=== PATIENT | male | born 1985 | race Caucasian/White ===

== ENCOUNTER 2019-12-26 13:52 | Emergency (ER) | payer OTHER, SELFPAY ==
[2019-12-26 14:09] VITALS: BP 144/96; PULSE 130; RESP 18; TEMP 38.6; O2SAT 97
--- NOTE | 2019-12-26 14:34 | WPDEDEXPGENP ---
HPI - General Ped General Chief complaint: Fever Stated complaint: sob/fever/cough Time Seen by Provider: 12/26/19 14:34 Source: patient and RN notes reviewed Mode of arrival: ambulatory Limitations: no limitations Nursing Documentation: reviewed/agree History of Present Illness HPI narrative: This is a 34 years old male presented office for evaluation of not feeling well since this morning. Symptoms include stuffy nose, runny nose, achy, sweating and chill. No treatment prior to arrival. He did not even know that he had a fever. He did not take influenza vaccine for the season. Related Data Home Medications Medication Instructions Recorded Confirmed atenolol 12.5 mg PO BID 12/26/19 12/26/19 bupropion HCl [Wellbutrin XL] 300 mg PO QAM 12/26/19 12/26/19 clonazepam 0.5 mg PO DAILY 12/26/19 12/26/19 dextroamphetamine-amphetamine 20 mg PO DAILY 12/26/19 12/26/19 [Adderall] eszopiclone [Lunesta] 2 mg PO HS 12/26/19 12/26/19 lamotrigine [Lamictal] 200 mg PO BID 12/26/19 12/26/19 Allergies Allergy/AdvReac Type Severity Reaction Status Date / Time No Known Allergies Allergy Unverified 12/26/19 14:42 Pediatric Review of Systems : Review of Systems: CONSTITUTIONAL: Reports chills, sweats. ENT:Reports a little stuffy nose. Denies sore throat/ears pain CARDIOVASCULAR: Denies chest pain, palpitations; admits to history of tachycardia RESPIRATORY: Denies dyspnea, wheezing. Reports a little cough GASTROINTESTINAL: Denies abdominal pain, vomiting, diarrhea. +nausea GENITOURINARY: Denies urinary symptoms or discharge SKIN: Denies rash MUSCULOSKELETAL: Denies acute back pain, joint pain, or myalgia. NEUROLOGIC: Denies numbness, or focal weakness. [facility] Past Medical History Medical History (Updated 12/26/19 @ 14:58 by SIGRID Koehler) Anxiety History of tachycardia Inguinal hernia Surgical History Surgical History (Updated 12/26/19 @ 14:58 by SIGRID Koehler) Hx of appendectomy Comments At time of signature, I agree with nursing past medical, surgical, social and family history. There is no relevant family history pertinent to the presenting complaint. Pediatric Exam Narrative: Physical exam: GENERAL: This is a well-nourished, well-developed patient, in no apparent distress. EYES: Sclera clear/white. Vision is grossly intact. EARS: External ears normal, auditory canals clear and without drainage, TMs normal without perforation. Hearing grossly intact. NOSE: External nose normal with no obvious nasal discharge, nares without redness, no rhinorrhea. THROAT: Mucous membranes moist, posterior pharynx clear. NECK: Neck supple, non-tender without lymphadenopathy, masses or thyromegaly. CARDIOVASCULAR: tachycardia, regular rhythm without murmurs, gallops, or rubs. RESPIRATORY: Clear to auscultation. Breath sounds equal bilaterally. No wheezes, rales, or rhonchi. GASTROINTESTINAL: Abdomen soft, non-tender, nondistended. Bowel sounds are active. No hepato-splenomegaly, or palpable masses. No guarding. SKIN: warm, clammy, intact with no suspicious lesions or rash, good texture and turgor. NEURO: awake, alert, and oriented to person, place and time. There were no obvious focal neurologic abnormalities. Steady gait [place] Coma Scale Eye Opening: Spontaneous 4 [place] Coma Scale Motor: Obeys Commands 6 [place] Coma Scale Verbal: Oriented 5 Course Vital Signs Vital signs: Vital Signs Temperature 101.4 F H 12/26/19 14:09 Pulse Rate 130 H 12/26/19 14:09 Respiratory Rate 18 12/26/19 14:09 Blood Pressure 144/96 H 12/26/19 14:09 Pulse Oximetry 97 12/26/19 14:09 Temperature 101.4 F H 12/26/19 14:09 Pulse Rate 130 H 12/26/19 14:09 Respiratory Rate 18 12/26/19 14:09 Blood Pressure 144/96 H 12/26/19 14:09 Pulse Oximetry 97 12/26/19 14:09 Medical Decision Making [facility] Narrative Medical decision making narrative: Discharge instructions reviewed with patient, as well as provided
[2019-12-26 14:45] VITALS: PULSE 112
== END 2019-12-26 14:45 | disposition home or self-care (01) ==
PROVIDERS: Emergency Provider Nurse Practitioner; PCP Physician Assistant
DX: J06.9 Acute upper respiratory infection, unspecified (principal); R03.0 Elevated blood-pressure reading, without diagnosis of hypertension; F41.9 Anxiety disorder, unspecified
CPT/HCPCS: 87804; 99212; G0463

== ENCOUNTER 2020-05-15 00:22 | Outpatient (CLI) | payer OTHER, SELFPAY ==
[2020-05-15 17:34] LABS: SARS-CoV-2 RNA PCR Negative
== END 2020-05-15 00:23 | disposition home or self-care (01) ==
LOC: ANHCOVIDDT 00:22
PROVIDERS: PCP Physician Assistant; Visit Provider Orthopaedic Surgery
DX: Z01.812 Encounter for preprocedural laboratory examination (principal); Z11.59 Encounter for screening for other viral diseases
CPT/HCPCS: 87635; C9803; U0003

== ENCOUNTER 2020-05-17 00:50 | Day surgery (SDC) | payer OTHER, SELFPAY ==
[2020-05-06 16:41] VITALS: BMI 41.8
--- NOTE | 2020-05-17 07:36 | WPDANESEPPF ---
Anes - Initial Pre Proc Eval Procedure: Operation Date: 05/17/20 09:30 Proposed Procedures p Left Ulnar Nerve Decompression At The Elbow - Jaime Squires MD Date/Time: 05/17/20 07:36 Surgeon: Jaime Squires MD Pre Op Diagnosis: Left Cubital Tunnel Syndrome Patient Data Age: 35 Gender: M Height: 1.8 m Weight: 136.2 kg Allergies Allergy/AdvReac Type Severity Reaction Status Date / Time No Known Allergies Allergy Verified 05/17/20 07:54 Home Medications Medication Instructions Recorded Confirmed Type atenolol 12.5 mg PO BID 12/26/19 05/17/20 History bupropion HCl [Wellbutrin XL] 300 mg PO QAM 12/26/19 05/17/20 History clonazepam 0.5 mg PO DAILY 12/26/19 05/17/20 History dextroamphetamine-amphetamine 20 mg PO DAILY 12/26/19 05/17/20 History [Adderall] lamotrigine [Lamictal] 150 mg PO BID 05/06/20 05/17/20 History trazodone 150 mg PO HS 05/06/20 05/17/20 History Patient hx anesthesia problems: none Family hx anesthesia problems: none PMFSH Past Medical History Medical History ADHD Anxiety Bipolar 1 disorder Cubital tunnel syndrome on left Depression History of tachycardia Inguinal hernia Morbid obesity with BMI of 40.0-44.9, adult DONITA (obstructive sleep apnea) PTSD (post-traumatic stress disorder) Surgical History Surgical History History of hernia repair (~2014) Incisional - Lt Hx of appendectomy Anes - Eval Final PreProcedure Day of Procedure 05/17/20 07:36 Patient weight: obese Heart: regular rate and rhythm Lungs: clear to auscultation and normal air movement Airway: Mallampati scale class III Neurological: alert and oriented Last oral intake: >/= 8 hours ASA classification: III Emergent: no Anesthetic plan: proceed Anesthesia type and monitoring: general GIVS Informed Consent: The patient's anesthetic plan and its attendant risks and benefits were discussed with the patient/family/POA. Questions were solicited and answers provided to the satisfaction of the patient/family/POA.
[2020-05-17] MEDS: LACTATED RINGERS 1,000 ML 30 ML IV CONT (08:10)
--- NOTE | 2020-05-17 08:56 | WPDHPUPDATE1 ---
History and Physical Update Update Date/Time: 05/17/20 08:56 History and Physical has been reviewed, including an updated exam of the patient. There are NO changes in the patient's condition. Risks, benefits, and alternatives have been discussed and questions answered. Patient agrees to proceed with procedure.
[2020-05-17] MEDS: ceFAZolin 3 GM/D5W 100 ML 100 ML IVPB (09:54)
[2020-05-17] MEDS: BUPIVACAINE/EPINEPHRINE 0.5% 30 ML VIAL INFILTRATE (10:13)
[2020-05-17] MEDS: KETOROLAC 30 MG/ML VIAL (*BKC) IV PUSH (10:30)
[2020-05-17 10:53] VITALS: BP 95/74; PULSE 85; RESP 20; TEMP 36.2; O2SAT 95
[2020-05-17 11:05] VITALS: BP 113/83; PULSE 88; RESP 20; O2SAT 97
[2020-05-17 11:20] VITALS: BP 114/87; PULSE 85; RESP 16; O2SAT 97
[2020-05-17 11:35] VITALS: BP 107/79; PULSE 83; RESP 14; O2SAT 96
[2020-05-17 11:41] VITALS: BP 130/65; PULSE 102; RESP 14
[2020-05-17 12:10] VITALS: BP 117/67; PULSE 84; RESP 14
--- NOTE | 2020-05-18 10:40 | PM.PROC ---
Procedure Note - Detailed Date of procedure: 05/17/20 Pre-op diagnosis: Left Cubital Tunnel Syndrome Post-op diagnosis: same Procedure performed: 1. Ulnar nerve decompression at the elbow. Description of procedure: Compression of the nerve at the cubital tunnel was identified. The retinaculum showed a muscular component. There was no evidence of nerve instability. Anesthesia: MAC Surgeon: Jaime Squires MD Estimated blood loss (mL): 1 Complications: None Condition: stable Findings: A general anesthetic was administered. The arm was prepped and draped in the usual sterile fashion with a well-padded tourniquet on the upper arm. A longitudinal incision was created posterior to the medial epicondyle. Careful dissection was brought down to the ulnar nerve. It was identified proximally and dissected to the cubital tunnel retinaculum. Careful dissection released the cubital tunnel retinaculum. The dissection was carried out to the flexor carpi the ulnaris. The 1st motor branch was carefully identified and protected. Attention was turned proximally in the nerve was released proximal to the intermuscular septum. The arm was flexed and the nerve was assessed. The nerve was stable. The tourniquet was released to assure that there was no significant bleeding. Meticulous hemostasis was maintained. The subcutaneous tissues were closed with 2-0 Vicryl suture. The skin was closed with interrupted 3-0 Monocryl suture followed by running 4-0 Monocryl suture and Steri-Strips. Sterile dressing was applied with a soft splint at the wrist and a hard splint at the elbow. The patient was extubated and brought to the recovery room in stable condition.
== END 2020-05-17 12:26 | disposition home or self-care (01) ==
PROVIDERS: PCP Physician Assistant; Visit Provider Orthopaedic Surgery
PROC: (CPT 64718; principal; 2020-05-17 09:30)
DX: G56.22 Lesion of ulnar nerve, left upper limb (principal); F90.9 Attention-deficit hyperactivity disorder, unspecified type; G47.33 Obstructive sleep apnea (adult) (pediatric); F31.9 Bipolar disorder, unspecified; F41.9 Anxiety disorder, unspecified; E66.01 Morbid (severe) obesity due to excess calories; Z68.41 Body mass index [BMI] 40.0-44.9, adult
CPT/HCPCS: 64718; A4565; A9270; J0131; J0690; J1100; J1885; J2250; J2405; J2704; J3010; J7120